=== PATIENT | male | born 1995 | race Caucasian/White ===

== ENCOUNTER 2022-11-21 21:28 | Emergency (ER) | payer OTHER ==
[2022-11-21 21:40] VITALS: BP 149/94
[2022-11-21] MEDS ORDERED: LIDOCAINE 1%-EPI 1:100000 20 ML MDV SUBQ STA (21:49)
[2022-11-21] MEDS ORDERED: levoFLOXacin 250 MG TABLET PO STA (21:50)
--- NOTE | 2022-11-21 22:09 | ED Physician Documentation ---
PD HPI UPPER EXT INJURY - Stated complaint Stated Complaint: CAT BITE - Chief complaint Chief Complaint: Laceration - History obtained from History obtained from: Patient - Additonal information Additional information: Bitten by a stray cat while trying to funes it in the garage just prior to arrival with lacerations on the right hand. Tetanus is up-to-date. He is allergic to Augmentin with a history of rash. PD PAST MEDICAL HISTORY - Present Medications Home Medications: Ambulatory Orders Medication Instructions Recorded Confirmed levoFLOXacin [Levofloxacin] 500 mg PO DAILY #5 tablet 11/21/22 - Allergies Allergies/Adverse Reactions: Allergies Allergy/AdvReac Type Severity Reaction Status Date / Time amoxicillin [From Augmentin] Allergy Unknown Verified 11/21/22 21:41 clavulanic acid Allergy Unknown Verified 11/21/22 21:41 [From Augmentin] PD ED PE NORMAL - Vitals Vital signs reviewed: Yes - General General: Alert and oriented X 3, No acute distress - Extremities Extremities: Other (There are 2 lacerations on the right hand on either side of the first metacarpal. Each is about 1 cm. There is no distal neurovascular compromise or limited range of motion. No ligamentous laxity. No bony tenderness.) - Neuro Neuro: Alert and oriented X 3, Normal speech - Psych Psych: Normal mood, Normal affect Results - Vitals Vitals: Vital Signs - 24 hr 11/21/22 21:36 Temperature 36.0 C L Heart Rate 89 Respiratory 16 Rate Blood Pressure 149/94 H O2 Saturation 99 Oxygen O2 Source Room air Procedures - Laceration (location) Right hand Length in cm: 2 Wound type: Linear (2 X 1CM), Into subcut fat Neurovascular status: Sensory intact, Motor intact, Vascular intact Anesthesia: Lidocaine 1% with epi Wound preparation: Hibiclens, Irrigated copiously NS Skin layer closure: Nylon, Interrupted, Size #-0 - enter number (4-0), Sutures - enter # (2) Other: Patient tolerated well, No complications, Neurovascular intact, Tetanus UTD PD Medical Decision Making - ED course ED course: He is allergic to Augmentin so was prescribed Levaquin. Departure - Departure Disposition: 01 Home, Self Care Clinical Impression: Cat bite of hand Qualifiers: Encounter type: initial encounter Laterality: right Qualified Code(s): S61.451A - Open bite of right hand, initial encounter Condition: Good Record reviewed to determine appropriate education?: Yes Instructions: ED Laceration Hand Prescriptions: levoFLOXacin [Levofloxacin] 500 mg PO DAILY #5 tablet Comments: Come back for any signs of infection which would include: Redness, swelling, drainage, increased pain, or fevers. You can wash it soap and water. Keep it covered and moist with bacitracin ointme nt which is available over the counter; avoid neosporin. Follow-up with your physician in 14 days for suture removal.
== END 2022-11-21 22:16 | disposition home or self-care (01) ==
LOC: ED 21:28
DX: S61.451A Open bite of right hand, initial encounter (principal); W55.01XA Bitten by cat, initial encounter
CPT/HCPCS: 12001; 99282; A9270